=== PATIENT | male | born 1980 | race Caucasian/White ===

== ENCOUNTER 2021-01-08 14:19 | Emergency (ER) | payer BC ==
[2021-01-08] MEDS ORDERED: NORFLEX 100 MG100 MG PO (16:47)
[2021-01-08] MEDS ORDERED: BACITRAYCIN PLU28 GM TP (16:47)
[2021-01-08] MEDS ORDERED: IBUPROFEN600 MG PO (16:47)
[2021-01-08] MEDS ORDERED: HYDROCODON-ACE1 EAC4 PO (16:58)
== END 2021-01-08 17:14 | disposition home or self-care (01) ==
LOC: ER1 14:19
DX: S42.032A Displaced fracture of lateral end of left clavicle, initial encounter for closed fracture (principal); S01.112A Laceration without foreign body of left eyelid and periocular area, initial encounter; S06.0X9A Concussion with loss of consciousness of unspecified duration, initial encounter; R91.1 Solitary pulmonary nodule; V29.60XA Unspecified motorcycle rider injured in collision with unspecified motor vehicles in traffic accident, initial encounter; Y92.830 Public park as the place of occurrence of the external cause
CPT/HCPCS: 12011; 70450; 71046; 73030; 99284